=== PATIENT | female | born 1935 | race Caucasian/White ===

== ENCOUNTER 2018-01-15 06:41 | Observation (INO) | payer MEDICARE, BC ==
[2018-01-15] MEDS ORDERED: SOD CHLORIDE 0.9% 1,000 ML IV (07:00)
[2018-01-15] MEDS ORDERED: VANCOMYCIN 1 GM 250 ML IVPB (07:00)
[2018-01-15] MEDS ORDERED: CLINDAMYCIN 600 MG/50 ML D5W IVPB IVPB (07:00)
[2018-01-15] MEDS ORDERED: PROPOFOL 20 ML (08:18)
[2018-01-15] MEDS ORDERED: FENTAnyl 50 MCG/ML VIAL (08:19)
[2018-01-15] MEDS ORDERED: ONDANSETRON 4 MG INJ (08:19)
[2018-01-15] MEDS ORDERED: DEXAMETHASONE 4 MG/ML 1 ML INJ (08:19)
[2018-01-15] MEDS ORDERED: CEFAZOLIN 1 GM INJ (08:19)
[2018-01-15] MEDS ORDERED: LIDOCAINE 2% (SDV) 5 ML INJ (08:19)
[2018-01-15] MEDS ORDERED: FAMOTIDINE 20 MG INJ (08:20)
[2018-01-15] MEDS ORDERED: ALBUTEROL 0.083% (NEB) 2.5 MG/3 ML AMP HHN (09:00)
[2018-01-15] MEDS ORDERED: DIPHENHYDRAMINE 50 MG INJ IV (09:00)
[2018-01-15] MEDS ORDERED: FENTAnyl 50 MCG/ML VIAL IV ×2 (09:00)
[2018-01-15] MEDS ORDERED: EPHEDrine SULFATE 50 MG/5 ML SYG IV (09:00)
[2018-01-15] MEDS ORDERED: MEPERIDINE 25 MG INJ IV (09:00)
[2018-01-15] MEDS ORDERED: LABETALOL HCL 20MG INJ IV (09:00)
[2018-01-15] MEDS ORDERED: OXYCODONE/ACETAMINOPHEN (5/325) TAB PO (09:00)
[2018-01-15] MEDS ORDERED: morphine (1 MG/ML) 10ML SYRINGE IV (09:00)
[2018-01-15] MEDS ORDERED: HYDROmorphONE 1 MG/5 ML IV SYRINGE IV (09:00)
[2018-01-15] MEDS ORDERED: ONDANSETRON 4 MG INJ IV ×2 (09:00→11:00)
[2018-01-15] MEDS ORDERED: ACETAMINOPHEN 1000MG/100ML IV 100 ML (09:06)
[2018-01-15] MEDS ORDERED: LABETALOL HCL 20MG INJ (09:26)
[2018-01-15] MEDS ORDERED: CA CHLORIDE 10% 10 ML SYRINGE (09:39)
[2018-01-15] MEDS ORDERED: EPHEDrine SULFATE 50 MG/5 ML SYG (09:45)
[2018-01-15] MEDS ORDERED: morphine 2 MG INJ IV (11:00)
[2018-01-15] MEDS: D5W-0.45 NACL + KCL 20 MEQ 1,000 ML IV ×3 (12:34→23:38)
[2018-01-15] MEDS: [UNRECOGNIZED DRUG - REMARK] XX (14:34)
[2018-01-15] MEDS: ACETAMINOPHEN 1000MG/100ML IV 100 ML IVPB (19:55)
[2018-01-15] MEDS: BRILINTA 60 MG PO (21:03)
[2018-01-15] MEDS: METOPROLOL 25 MG TAB PO (21:04)
[2018-01-15] MEDS: RANOLAZINE (SR) 500 MG TAB PO (21:04)
[2018-01-16 08:03] LABS: ADD MAN DIFF? NO
[2018-01-16 08:32] LABS: CHOL/HDL RATIO 2.7 RATIO; HDL CHOLESTEROL 58 mg/dl (33-92); LDL CHOLESTEROL,CALCULATED 81 mg/dl; TRIGLYCERIDES 89 mg/dl (0-149)
[2018-01-16 08:32] LABS: CHOLESTEROL 157 mg/dl (100-200)
[2018-01-16 08:33] LABS: ANION GAP 14 (8-16); BLOOD UREA NITROGEN 12 mg/dl (7-20); CALCIUM 9.5 mg/dl (8.4-10.2); CARBON DIOXIDE 24 mmol/L (21-31); CHLORIDE 107 mmol/L (97-110); GLUCOSE 111 mg/dl (70-220); POTASSIUM 4.7 mmol/L (3.5-5.1); SODIUM 140 mmol/L (135-144)
[2018-01-16 08:34] LABS: WHITE BLOOD COUNT 11.1 10^3/ul (4.8-10.8)
[2018-01-16 08:34] LABS: BASOPHILS % 0.3 % (0.0-2.0); HEMATOCRIT 34.6 % (37.0-47.0); HEMOGLOBIN 11.4 g/dl (12.0-16.0); IMMATURE GRANS #M 0.04 10^3/ul; IMMATURE GRANS % (M) 0.4 %; LYMPHOCYTES % 9.1 % (15.0-51.0); MEAN CORPUSCULAR HEMOGLOBIN 30.7 pg (29.0-33.0); MEAN CORPUSCULAR HGB CONC 32.9 g/dl (32.0-37.0); MEAN CORPUSCULAR VOLUME 93.3 fl (82.0-101.0); MEAN PLATELET VOLUME 11.6 fl (7.4-10.4); MONOCYTES % 8.9 % (0.0-11.0); NEUTROPHILS % 81.3 % (39.0-77.0); PLATELET COUNT 204 10^3/UL (140-415); RED BLOOD COUNT 3.71 10^6/ul (4.20-5.40); RED CELL DISTRIBUTION WIDTH 13.3 % (11.5-14.5)
[2018-01-16] MEDS: ASPIRIN (EC) 81 MG TAB PO (08:42)
[2018-01-16] MEDS: ESCITALOPRAM 10 MG TAB PO (08:42)
[2018-01-16] MEDS: PANTOPRAZOLE (EC) 40 MG TAB PO (08:43)
[2018-01-16] MEDS: METOPROLOL 25 MG TAB PO (08:43)
[2018-01-16] MEDS: RANOLAZINE (SR) 500 MG TAB PO (08:43)
[2018-01-16] MEDS: BRILINTA 60 MG PO (08:44)
[2018-01-16] MEDS: D5W-0.45 NACL + KCL 20 MEQ 1,000 ML IV (13:43)
[2018-01-17] MEDS ORDERED: NIFEdipine (XL) 30 MG TAB PO (09:00)
== END 2018-01-16 18:45 | disposition home or self-care (01) ==
LOC: SUR 06:41 → SDS 06:41 → SUR 10:42 → REC 10:42 → PP2 11:53
PROVIDERS: Surgery Surgical Oncology
DX: C50.911 Malignant neoplasm of unspecified site of right female breast (principal); C77.3 Secondary and unspecified malignant neoplasm of axilla and upper limb lymph nodes; I10 Essential (primary) hypertension; E78.5 Hyperlipidemia, unspecified; I25.10 Atherosclerotic heart disease of native coronary artery without angina pectoris; Z95.5 Presence of coronary angioplasty implant and graft; Z88.0 Allergy status to penicillin
CPT/HCPCS: 19307; 80048; 80061; 85025; 88307; 93005; 99217; G0378